=== PATIENT | male | born 1955 | race Caucasian/White ===

== ENCOUNTER 2016-09-18 13:05 | Emergency (ER) | payer OTHER ==
[~2016-09-18] VITALS: Ht 172.7 cm; Wt 97.0 kg
[~2016-09-18 13:05] MED LIST: ASPI81TA82 PO; LORT5TAB PO; TAB-TAB PO
[2016-09-18 13:11] VITALS: BP 172/89; PULSE 58; RESP 16; TEMP 98.1; O2SAT 98
--- NOTE | 2016-09-18 13:42 | PD ---
HPI Chief Complaint: Flank/Kidney Pain Time Seen by Provider: 13:28 Travel History International Travel<30 days: No Contact w/Intl Traveler<30days: [place] Traveled to: [place] Traveled to known affect area: No History of Present Illness HPI 60-year-old complains of right flank pain. Patient states that the pain started about 3 weeks ago. Patient states that the pain accommodation sharp pain and aching pain intermittent pain localized to the right flank area. Patient denies any pain radiation. Patient denies any fever chills. Patient denies any dysuria or frequency. Patient denies any injury. Patient denies any history kidney stone. Patient denies any nausea vomiting. Patient was seen at local urgent care center this morning and referred to the ED for evaluation. PFSH Past Medical History Diminished Hearing: No Immunizations Current: Yes Tetanus Vaccination: Unknown Influenza Vaccination: Yes Past Surgical History Other Surgery: Yes (REPAIR MIDDLE FINGER LEFT ) Social History Alcohol Use: Yes (social) Tobacco Use: No Substance Use: No Allergies-Medications (Allergen,Severity, Reaction): Coded Allergies: No Known Allergies (Verified , 09/18/16) Reported Meds & Prescriptions Reported Meds & Active Scripts Active Lortab 5/500 (Acetaminophen/Hydrocodone Bitart) 5 Mg/500 Mg Tab 1 Tab PO Q6HPRN FOR PAIN Reported Multivitamin (Multivitamins) 1 Tab Tab 1 Tab PO DAILY Aspir-81 (Aspirin) 81 Mg Tab 81 Mg PO Review of Systems General / Constitutional: No: Fever Eyes: No: Visual changes HENT: No: Headaches Cardiovascular: No: Chest Pain or Discomfort Respiratory: No: Shortness of Breath Gastrointestinal: Positive: Abdominal Pain Genitourinary: No: Dysuria Musculoskeletal: No: Pain Skin: No Rash Neurologic: No: Weakness Psychiatric: No: Depression Endocrine: No: Polydipsia Hematologic/Lymphatic: No: Easy Bruising Physical Exam Narrative GENERAL: Well-nourished, well-developed patient. SKIN: Focused skin assessment warm/dry. HEAD: Normocephalic. EYES: No scleral icterus. No injection or drainage. NECK: Supple, trachea midline. No JVD or lymphadenopathy. CARDIOVASCULAR: Regular rate and rhythm without murmurs, gallops, or rubs. RESPIRATORY: Breath sounds equal bilaterally. No accessory muscle use. GASTROINTESTINAL: Abdomen soft, non-tender, nondistended. MUSCULOSKELETAL: No cyanosis, or edema. BACK: Mild to moderate tenderness on palpation mid lumbar area on the right side , without obvious deformity. No CVA tenderness. Neurologic exam normal. Data Data Last Documented VS Vital Signs Date Time Temp Pulse Resp B/P Pulse Ox O2 Delivery O2 Flow Rate FiO2 09/18/16 13:11 98.1 58 16 172/89 98 Orders Urinalysis - C+S If Indicated (09/18/16 13:31) Ct Abd/Pel W/O Iv Contrast (09/18/16 13:31) Labs Laboratory Tests Test 09/18/16 13:45 Urine Collection Type CLEAN CATCH Urine Color YELLOW Urine Turbidity CLEAR Urine pH 6.0 Urine Specific [place] 1.020 Urine Protein NEG mg/dL Urine Glucose (UA) NEG mg/dL Urine Ketones NEG mg/dL Urine Occult Blood TRACE Urine Nitrite NEG Urine Bilirubin NEG Urine Leukocyte Esterase NEG Urine RBC 0-3 /hpf Microscopic Urinalysis Comment CULT NOT INDICATED MDM Medical Decision Making Medical Screen Exam Complete: Yes Emergency Medical Condition: Yes Interpretation(s) 14 11 PM. UA is negative. CT scan abdomen pelvis shows no stone or obstruction. Low-density mass left kidney. Advised outpatient MRI follow-up. Differential Diagnosis Differential diagnosis including musculoskeletal, nephrolithiasis, pyelonephritis, HNP. Narrative Course 60-year-old male with right mid back pain. Diagnosis Primary Impression: Lumbar strain Qualified Code: S39.012A - Strain of lumbar region, initial encounter Patient Instructions: General Instructions Additional Instructions: Take medication as needed for pain. Follow-up with personal physician for MRI follow-up with kidney lesion. Return if worse. Med/Other Pt SpecificInfo: Prescription(s) given Scripts Methocarbamol (Robaxin)750 Mg [id number] Mg PO QID #40 TAB Prov:Scotty Lee MD 09/18/16 Meloxicam (Mobic)15 Mg Tab15 Mg PO DAILY #20 TAB Prov:Scotty Lee MD 09/18/16 Disposition: 01 DISCHARGE HOME Condition: Stable Scotty Lee MD Sep 18, 2016 13:42
[2016-09-18 13:57] LABS: BLOOD, URINE TRACE (NEG); GLUCOSE,URINE NEG (NEG); KETONE, URINE NEG (NEG); NITRITE,URINE NEG (NEG)
[2016-09-18 13:59] LABS: METHOD OF COLLECTION CLEAN CATCH; URINE COLOR YELLOW (YELLW/STRAW)
[2016-09-18 14:00] LABS: RBC, URINE 0-3 /hpf (0-3)
[2016-09-18 14:01] LABS: COMMENT (UR) CULT NOT INDICATED; CULTURE IF INDICATED CULT NOT INDICATED
--- NOTE | 2016-09-18 14:27 | RADRPT ---
EXAM DATE/TIME: 09/18/2016 13:41 [facility] COMPARISON: No previous studies available for comparison. INDICATIONS : Right flank pain ORAL CONTRAST: No oral contrast ingested. RADIATION DOSE: 21.90 CTDIvol (mGy) MEDICAL HISTORY : None SURGICAL HISTORY : None. ENCOUNTER: Initial ACUITY: 1 week PAIN SCALE: 7/10 LOCATION: Right flank TECHNIQUE: Volumetric scanning of the abdomen and pelvis was performed. Using automated exposure control and ad justment of the mA and/or kV according to patient size, radiation dose was kept as low as reasonably achievable to obtain optimal diagnostic quality images. DICOM format image data is available electro nically for review and comparison. FINDINGS: LOWER LUNGS: The visualized lower lungs are clear. LIVER: Homogeneous density without lesion. There is no dilation of the biliary tree. No calcified gallston es. SPLEEN: Normal size without lesion. PANCREAS: Within normal limits. KIDNEYS: No stones or hydronephrosis demonstrated. A vague low density lesion measuring approximately 18 mm in size is noted of the left mid zone. There may be a similar lesion of the lower pole measuring about 13 mm. ADRENAL GLANDS: Within normal limits. VASCULAR: There is no aortic aneurysm. BOWEL/MESENTERY: Moderate severity sigmoid colon diverticulosis. No diverticulitis or other acute inflammatory changes are demonstrated. The appendix is normal. There is no free fluid. ABDOMINAL WALL: Within normal limits. RETROPERITONEUM: There is no lymphadenopathy. BLADDER: No wall thickening or mass. REPRODUCTIVE: Within normal limits. INGUINAL: There is no lymphadenopathy or hernia. MUSCULOSKELETAL: No acute bony abnormality demonstrated. CONCLUSION: 1. No stone, obstruction or other acute abnormality seen of either kidney. 2. There are 2 low density masses of the left kidney measuring up to 18 mm in size, indeterminate, no t clearly representing cysts. Attempted further characterization is warranted. Outpatient abdominal M RI with and without contrast recommended. 3. Moderate sigmoid colon diverticulosis. No diverticulitis or other acute inflammatory changes. Praneeth Alvarado MD on September 18, 2016 at 14:21 Board Certified Radiologist. This report was verified electronically.
[2016-09-18] MEDS ORDERED: ROBA750T PO (14:34)
[2016-09-18] MEDS ORDERED: MOBI15TA PO (14:34)
== END 2016-09-18 14:59 | disposition home or self-care (01) ==
LOC: PHED 13:05
DX: S39.012A Strain of muscle, fascia and tendon of lower back, initial encounter (principal); X58.XXXA Exposure to other specified factors, initial encounter
CPT/HCPCS: 74176; 81001; 99284